=== PATIENT | male | born 1990 | race Hispanic/Latino ===

== ENCOUNTER 2020-10-29 10:14 | Emergency (ER) | payer SELFPAY ==
[2020-10-29 10:40] VITALS: BP 144/93; PULSE 68; RESP 16; TEMP 36.6; O2SAT 100; BMI 29.4
--- NOTE | 2020-10-29 10:48 | ED.ANIMALBIT ---
HPI - Animal Bite <MORRIS Luong - Last Filed: 10/29/20 16:05> General Chief Complaint: Animal Bite Stated Complaint: left palm dog bite/dizzy x2 days Time Seen by Provider: 10/29/20 10:26 Source: patient Mode of arrival: Ambulatory Limitations: no limitations History of Present Illness HPI narrative: 30yo male presents to the ED for a bite to left palm. Patient states he was playing with his puppy when he reached his hand out and his hand hit a tooth approximately 2 days ago. He states at 1st there was a significant amount of blood which was stopped with a small amount of pressure. 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 Patient was concerned about possible blood loss. He denies any additional bleeding after the incident. Patient denies any significant medical history or blood wrist. Patient denies any fevers, chills, increased redness, purulent drainage, nausea, vomiting, diarrhea, or any other concerns. Related Data Allergies Allergy/AdvReac Type Severity Reaction Status Date / Time No Known Drug Allergies Allergy Verified 10/29/20 10:58 Review of Systems <MORRIS Luong - Last Filed: 10/29/20 16:05> Review of Systems Narrative: REVIEW OF SYSTEMS: GENERAL: Denies fever or chills. HENT: Denies head trauma. MUSCULOSKELETAL: Reports left hand pain, see HPI. INTEGUMENTARY: Complains dog bite to left palm, see HPI. NEURO: Denies numbness or tingling. Patient History <MORRIS Luong - Last Filed: 10/29/20 16:05> Medical History No significant medical problems Social History Smoking Status: Current every day smoker Smoking Status: Current every day smoker alcohol intake frequency: 0-2 drinks per day Substance Use Type: does not use Exam <MORRIS Luong - Last Filed: 10/29/20 16:05> Initial Vital Signs Initial Vital Signs: Vital Signs Temperature 97.9 F 10/29/20 10:40 Pulse Rate 68 10/29/20 10:40 Respiratory Rate 16 10/29/20 10:40 Blood Pressure 144/93 H 10/29/20 10:40 Pulse Oximetry 100 10/29/20 10:40 PHYSICAL EXAMINATION: GENERAL: Awake and alert. No distress. HENT: Normocephalic, atraumatic. Cardio: Regular rate. S1-S2 sounds heard, no murmurs or clicks. RESPIRATORY: Normal respiratory rate, trachea midline, airway patent. No stridor, nasal flaring or accessory muscle use. Lungs clear. MUSCULOSKELETAL: Normal gait and coordination. Equal tone and mass bilaterally. EXTREMITIES: CMS intact. Moves all extremities. SKIN: Warm, dry, soft, appropriate color for ethnicity. A 2cm laceration noted to left radial aspect of palm. Approximately 3-4 cm of surrounding ecchymosis. No erythema, purulent discharge, fluctuation, or significant pain with palpation. Patient has full range of motion of hand, fingers and wrist. NEURO: Alert and Oriented X 3. Good coordination. PSYCH: Appropriate affect and mood. <Zeina Panchal MD - Last Filed: 10/30/20 07:33> Initial Vital Signs Initial Vital Signs: Vital Signs Temperature 97.9 F 10/29/20 10:40 Pulse Rate 68 10/29/20 10:40 Respiratory Rate 16 10/29/20 10:40 Blood Pressure 144/93 H 10/29/20 10:40 Pulse Oximetry 100 10/29/20 10:40 Course <MORRIS Luong - Last Filed: 10/29/20 16:05> Orders Ordered: Discontinued Medications Diphtheria/Tetanus/Acell Pertussis (Tet,Diph,Pertuss(Acell),Vac/Pf 0.5 Ml Syringe) 0.5 ml IM .ONCE ONE Stop: 10/29/20 10:44 Last Admin: 10/29/20 10:58 Dose: 0.5 ml Documented by: TU Vital Signs Vital signs: Vital Signs - 8 hr 10/29/20 10:40 10/29/20 12:04 Temperature 97.9 F Pulse Rate 68 70 Respiratory Rate 16 12 Blood Pressure 144/93 H 112/78 Pulse Oximetry 100 99 <Zeina Panchal MD - Last Filed: 10/30/20 07:33> Orders Ordered: Discontinued Medications Diphtheria/Tetanus/Acell Pertussis (Tet,Diph,Pertuss(Acell),Vac/Pf 0.5 Ml Syringe) 0.5 ml IM .ONCE ONE Stop: 10/29/20 10:44 Last Admin: 10/29/20 10:58 Dose: 0.5 ml Documented by: TU Vital Signs Vital signs: Vital Signs - 8 hr 10/29/20 10:40 10/29/20 12:04 Temperature 97.9 F Pulse Rate 68 70 Respiratory Rate 16 12 Blood Pressure 144/93 H 112/78 Pulse Oximetry 100 99 MDM - Animal Bite <MORRIS Luong - Last Filed: 10/29/20 16:05> Medical Records Attestation: I reviewed the patient's medical records. Lab Data Attestation: I reviewed the patient's lab results. Labs: Lab Results 10/29/20 Range/Units 11:04 SARS-CoV-2 (PCR) Negative (Negative) MDM Narrative Medical decision making narrative: History and examination revealed a laceration to left palm which patient describes occurred from a dog tooth. The area does not look infected, no purulent drainage or surrounding erythema. Upon palpation, there is no fluctuance or concern for retained foreign bodies. Antibiotics not indicated at this time. Discussed with patient that his feelings of increased fatigue and dizziness after running up the stairs was most likely not caused from blood loss given the appearance and location of the wound. However, patient was tested for COVID-19, which was negative. Return precautions given for new or worsening symptoms. Patient agreed to plan of care verbalized understanding. <Zeina Panchal MD - Last Filed: 10/30/20 07:33> Lab Data Labs: Lab Results 10/29/20 Range/Units 11:04 SARS-CoV-2 (PCR) Negative (Negative) Discharge Plan Departure Patient Disposition: Home Clinical Impression: Bite by animal Instructions: DI for Dog Bite Activity Restrictions/Additional Instructions: Thank you for entrusting me with your care today. As discussed, your wound looks good today. It should continue to heal nicely. We have updated your Tdap. Your COVID test was negative. No foreign bodies were found in your wound today. While there is low-risk for infection at this time, retained foreign bodies and infection are always possible with any cut or break in the skin. Please monitor the wound closely and be re-evaluated immediately if you develop any signs of infection such as pus, increasing redness, increasing pain, fevers, or any other concerns. Drink plenty of water and dressed. Follow-up with your primary care provider in the next 1-2 weeks if your symptoms continue. Stand Alone Forms: Work Release Note <Zeina Panchal MD - Last Filed: 10/30/20 07:33> Cosign ED Attending Cosignature Attestation: I was immediately available in the department for consultation throughout this patient's visit. I agree with documentation as above. Zeina Panchal MD
[2020-10-29] MEDS: TET,DIPH,PERTUSS(ACELL),VAC/PF 0.5 ML SYRINGE IM (10:58)
[2020-10-29 11:32] LABS: COVID19 -Nasal RAPID Negative (Negative)
[2020-10-29 12:04] VITALS: BP 112/78; PULSE 70; RESP 12; O2SAT 99
== END 2020-10-29 12:06 | disposition home or self-care (01) ==
PROVIDERS: Emergency Provider Nurse Practitioner
DX: S61.452A Open bite of left hand, initial encounter (principal); W54.0XXA Bitten by dog, initial encounter; R42 Dizziness and giddiness; Z20.822 Contact with and (suspected) exposure to COVID-19; Z23 Encounter for immunization
CPT/HCPCS: 87635; 90471; 99281; 99283; C9803; 90715